=== PATIENT | female | born 1995 | race Caucasian/White ===

== ENCOUNTER 2018-01-19 13:00 | Emergency (ER) | payer BC ==
[~2018-01-19] VITALS: Ht 167.6 cm; Wt 79.2 kg
[~2018-01-19 13:00] MED LIST: MACROBID100 MG PO
[2018-01-19] MEDS ORDERED: NAPROXEN500 MG PO (14:14)
[2018-01-19] MEDS ORDERED: AUGMENTIN875 MG PO (14:14)
[2018-01-19 14:58] VITALS: BP 120/64
== END 2018-01-19 14:59 | disposition home or self-care (01) ==
LOC: EME 13:00
DX: I88.9 Nonspecific lymphadenitis, unspecified (principal); Z88.2 Allergy status to sulfonamides
CPT/HCPCS: 99281; 99283